=== PATIENT | female | born 1970 | race Caucasian/White ===

== ENCOUNTER 2018-10-11 10:31 | Outpatient (CLI) | payer MEDICARE ==
--- NOTE | 2018-10-11 11:43 | MRI ---
MRI Lower Ext Jt Lt WO Con HISTORY: Left knee pain. No history of previous surgery. COMPARISON: None. FINDINGS: The anterior as well as posterior cruciate ligaments are intact The lateral meniscus has a normal shape and appearance. There is a root tear of the posterior horn of the medial meniscus, there is meniscal protrusion relat ed to loss of hoop strength. There are subchondral marrow edema changes involving the tibia associated with this and what appears to be a small subchondral insufficiency fracture. The medial and lateral collateral ligaments and iliotibial band regions appear unremarkable. Patellar articular cartilage shows some mild thinning involving the lateral facet. The medial and lat eral patellar retinaculum and quadriceps and patellar tendons are unremarkable. A joint effusion is present there is a Pappas's cyst noted which is partially ruptured. There is some low signal intensity density within the Pappas's cyst which could represent some clot. This does not have the appearance of a loose body. IMPRESSION: Moderate tear of the posterior horn of the medial meniscus, this is associated with menis elin protrusion and a small subchondral insufficiency fracture involving the medial tibial plateau.
== END 2018-10-11 10:32 | disposition home or self-care (01) ==
LOC: BICMRI 10:31
PROVIDERS: ATTEND Orthopaedic Surgery
DX: M25.562 Pain in left knee (principal); S83.241A Other tear of medial meniscus, current injury, right knee, initial encounter; M84.461A Pathological fracture, right tibia, initial encounter for fracture

== ENCOUNTER 2019-02-19 12:00 | Outpatient (CLI) | payer MEDICARE ==
--- NOTE | 2019-02-19 15:57 | MMO ---
Bilateral MAMMO Bilat Screen [facility]. CLINICAL HISTORY: Patient is 48 years old and is seen for screening. The patient has the following family history of breast cancer: sister and maternal grandmother. The patient has no personal history of cancer. VIEWS: The views performed were: bilateral craniocaudal with tomosynthesis and bilateral mediolateral oblique with tomosynthesis. This study has been interpreted with the assistance of computer-aided detection. MAMMOGRAM FINDINGS: There are scattered fibroglandular densities. There are no suspicious masses, suspicious calcifications, or new areas of architectural distortion. IMPRESSION: THERE IS NO MAMMOGRAPHIC EVIDENCE OF MALIGNANCY. A ROUTINE FOLLOW-UP MAMMOGRAM IN 1 YEAR IS RECOMMENDED. THE RESULTS OF THIS EXAM WERE SENT TO THE PATIENT. ACR BI-RADS Category 1 - Negative MAMMOGRAPHY NOTE: 1. A negative mammogram report should not delay a biopsy if a dominant of clinically suspicious mass is present. 2. Approximately 10% to 15% of breast cancers are not detected by mammography. 3. Adenosis and dense breasts may obscure an underlying neoplasm. Reported by: SEFERINO MARTE MD Electonically Signed: [id number]
== END 2019-02-19 12:01 | disposition home or self-care (01) ==
LOC: BICMAMMO 12:00
PROVIDERS: ATTEND Family Medicine
DX: Z12.31 Encounter for screening mammogram for malignant neoplasm of breast (principal); Z80.3 Family history of malignant neoplasm of breast
CPT/HCPCS: 77063; 77067

== ENCOUNTER 2022-01-20 12:14 | Outpatient (CLI) | payer OTHER | END 2022-01-20 12:15 | disposition home or self-care (01) | LOC: BICMAMMO 12:14 | PROVIDERS: ATTEND Family Medicine | DX: Z12.31 Encounter for screening mammogram for malignant neoplasm of breast (principal); Z80.3 Family history of malignant neoplasm of breast | CPT/HCPCS: 77063; 77067 ==

== ENCOUNTER 2022-05-10 13:32 | Outpatient (CLI) | payer OTHER ==
[2022-05-10 15:14] LABS: Hemoglobin 13.8 g/dL (12.0-15.5); Mean Corpuscular HGB CONC 33.5 g/dL (32.0-36.0); Mean Corpuscular Hemoglobin 29.9 pg (27.0-33.0); Mean Corpuscular Volume 89.4 fl (81.6-98.3); Mean Platelet Volume 10.4 fl (7.4-10.4); Platelet Count 329 10x3/uL (150-450); RBC Distribution Width 12.6 % (11.5-14.5); Red Blood Cell (RBC) Count 4.61 10x6/uL (3.90-5.03); White Blood Cell (WBC) Count 7.2 10x3/uL (3.5-10.5)
[2022-05-10 15:25] LABS: PTT 26.6 sec (22.0-33.0); Prothrombin Time 10.4 sec (9.5-12.1)
[2022-05-10 15:26] LABS: Anion Gap 13 mmol/L (10-20); BUN (Urea Nitrogen) 15 mg/dL (9.8-20.1); Calc. Creatinine Clearance 0 mL/min (70-130); Calcium 9.8 mg/dL (7.8-10.44); Carbon Dioxide 30 mmol/L (22-29); Chloride 106 mmol/L (98-107); Estimated GFR 92; Glucose 114 mg/dL (70-105); Potassium 4.7 mmol/L (3.5-5.1); Sodium 144 mmol/L (136-145)
== END 2022-05-10 13:33 | disposition home or self-care (01) ==
LOC: LABBT 13:32
PROVIDERS: ATTEND Urology
DX: Z01.818 Encounter for other preprocedural examination (principal); N20.1 Calculus of ureter; R31.29 Other microscopic hematuria
CPT/HCPCS: 80048; 81001; 85027; 85610; 85730; 87086; 93005; 93010

== ENCOUNTER 2022-05-12 08:07 | Day surgery (SDC) | payer OTHER ==
[2022-05-11 09:40] VITALS: BMI 32.9
[2022-05-12] MEDS ORDERED: Iopamidol 30 ML ONE (10:37)
[2022-05-12] MEDS ORDERED: Acetaminophen 500 MG TAB ONE (10:39)
[2022-05-12] MEDS ORDERED: Fentanyl 100 MCG/2 ML VIAL ONE (10:42)
[2022-05-12] MEDS ORDERED: Levofloxacin 500 mg/D5W 100 ml Premix Bag ONE (10:54)
[2022-05-12] MEDS ORDERED: Ondansetron PF 4 MG/2 ML Vial ONE (11:00)
[2022-05-12] MEDS ORDERED: Dexamethasone 20 MG/5 ML VIAL ONE (11:00)
[2022-05-12] MEDS ORDERED: PHENYLEPHRINE-NS 100 MCG/ML 10 ML SYRINGE ONE (11:00)
[2022-05-12] MEDS ORDERED: Lidocaine 1% PF 5 ML VIAL ONE (11:00)
[2022-05-12] MEDS ORDERED: Ketorolac Tromethamine 30 MG/ML VIAL ONE (11:00)
[2022-05-12] MEDS ORDERED: ePHEDrine 50 MG/ML VIAL ONE (11:00)
[2022-05-12] MEDS ORDERED: PROPOFOL 200 MG/20 ML VIAL ONE (11:00)
[2022-05-12] MEDS ORDERED: Phenazopyridine HCl 100 MG TAB ONE (12:06)
[2022-05-12] MEDS ORDERED: Oxybutynin 5 MG TAB ONE (12:06)
== END 2022-05-12 14:05 | disposition home or self-care (01) ==
LOC: SDC 08:07
PROVIDERS: ATTEND Urology
PROC: 0T768DZ Dilation of Right Ureter with Intraluminal Device, Via Natural or Artificial Opening Endoscopic (ICD-10-PCS; principal; 2022-05-12)
DX: N13.2 Hydronephrosis with renal and ureteral calculous obstruction (principal); N13.4 Hydroureter; N35.92 Unspecified urethral stricture, female; G47.33 Obstructive sleep apnea (adult) (pediatric); Z87.820 Personal history of traumatic brain injury; Z79.1 Long term (current) use of non-steroidal anti-inflammatories (NSAID); Z79.899 Other long term (current) drug therapy; Z88.0 Allergy status to penicillin; Z88.8 Allergy status to other drugs, medicaments and biological substances
CPT/HCPCS: 74018; 74420; C1769; C2617; J1100; J1885; J1956; J2405; J2704; J3010; J3490; Q9967

== ENCOUNTER 2022-05-25 13:16 | Observation (INO) | payer OTHER ==
[2022-05-25] MEDS ORDERED: Ketorolac Tromethamine 30 MG/ML VIAL ONE ×2 (13:57→14:07)
[2022-05-25] MEDS ORDERED: Ondansetron PF 4 MG/2 ML Vial ONE ×2 (13:57→14:07)
[2022-05-25 14:12] LABS: #Eosinphils 0.2 thou/uL (0.0-0.7); #Lymphocytes 1.3 thou/uL (1.20-3.40); #Neutrophils 7.8 thou/uL (1.40-6.50); %Basophils 0.4 % (0.0-1.0); %Lymphocytes 12.7 % (21.0-51.0); %Monocytes 9.8 % (0.0-10.0); %Neutrophils 75.1 % (42.0-75.0); Hemoglobin 12.9 g/dL (12.0-16.0); Mean Corpuscular HGB CONC 34.1 g/dL (32.0-36.0); Mean Corpuscular Volume 90.9 fl (78.0-98.0); Mean Platelet Volume 8.1 fL (7.4-10.4); Platelet Count 266 10x3/uL (130-400); RBC Distribution Width 11.8 % (11.5-14.5); Red Blood Cell (RBC) Count 4.17 mill/uL (4.20-5.40); White Blood Cell (WBC) Count 10.3 10x3/uL (4.8-10.8)
[2022-05-25 14:31] LABS: ALT (SGPT) 31 U/L (8-55); AST (SGOT) 26 U/L (5-34); Albumin 4.1 g/dL (3.5-5.0); Alkaline Phosphatase 75 U/L (40-110); Anion Gap 11 mmol/L (10-20); BUN (Urea Nitrogen) 16 mg/dL (9.8-20.1); Bilirubin, Total 0.6 mg/dL (0.2-1.2); Calc. Creatinine Clearance 0 mL/min (70-130); Calcium 9.3 mg/dL (7.8-10.44); Carbon Dioxide 27 mmol/L (22-29); Chloride 104 mmol/L (98-107); Estimated GFR 83; Globulin 2.8 g/dL (2.4-3.5); Glucose 109 mg/dL (70-105); Lipase 53 U/L (8-78); Potassium 3.9 mmol/L (3.5-5.1); Protein, Total 6.9 g/dL (6.0-8.3); Sodium 138 mmol/L (136-145)
[2022-05-25] MEDS ORDERED: Ondansetron PF 4 MG/2 ML Vial IVP PRN (15:19)
[2022-05-25] MEDS ORDERED: Acetaminophen 325 MG TAB PO PRN (15:19)
[2022-05-25] MEDS ORDERED: traMADol HCl 50 MG TAB PO PRN (15:21)
[2022-05-25] MEDS ORDERED: cefTRIAXone\\ROCEPHIN 1 GM VIAL ONE (15:38)
[2022-05-25] MEDS ORDERED: Promethazine HCl 25 MG in Sodium Chloride 0.9% 50 ML IVPB SCH (15:45)
[2022-05-25] MEDS ORDERED: cefTRIAXone\\ROCEPHIN 1 GM in Sodium Chloride 0.9% 100 ML IVPB SCH (16:00)
[2022-05-25] MEDS ORDERED: Morphine 4 MG/ML VIAL SLOW IVP PRN (16:28)
[2022-05-25] MEDS ORDERED: Sodium Chloride 0.9% 1,000 ML IV SCH (16:30)
[2022-05-25] MEDS ORDERED: Morphine 4 MG/ML VIAL ONE (16:34)
[2022-05-25] MEDS ORDERED: Mag-Al 1200 mg/1200 mg/30 ML UDCUP PO PRN (17:47)
[2022-05-25] MEDS ORDERED: hydrALAZINE 20 MG/ML VIAL SLOW IVP PRN (17:47)
[2022-05-25] MEDS ORDERED: diphenhydrAMINE 50 MG/ML VIAL IVP PRN (17:47)
[2022-05-25] MEDS ORDERED: Phenazopyridine HCl 95 MG TAB PO PRN ×2 (17:47→23:00)
[2022-05-25] MEDS ORDERED: HYDROcodone/Acetaminophen 10/325 mg Tablet PO PRN ×2 (17:47)
[2022-05-25] MEDS ORDERED: Acetaminophen 500 MG TAB PO PRN (17:47)
[2022-05-25] MEDS ORDERED: SUMAtriptan Succinate 50 MG TAB PO PRN (17:55)
[2022-05-25] MEDS ORDERED: Famotidine/PF 20 mg/2ml Vial ONE (20:58)
[2022-05-25] MEDS ORDERED: Tamsulosin HCl 0.4 MG CAP PO SCH (21:00)
[2022-05-25] MEDS ORDERED: Atorvastatin Calcium 40 MG TAB PO SCH (21:00)
[2022-05-25] MEDS ORDERED: Docusate 100 MG CAP PO SCH (21:00)
[2022-05-25] MEDS ORDERED: Gabapentin 300 MG CAP PO SCH (21:00)
[2022-05-25] MEDS ORDERED: Famotidine/PF 20 mg/2ml Vial SLOW IVP SCH (21:00)
[2022-05-25 22:35] LABS: SARS-CoV-2 NAA Rapid Test Not Detected (NotDetected)
[2022-05-25] MEDS ORDERED: Phenazopyridine HCl 100 MG TAB PO PRN (23:00)
[2022-05-26 00:15] LABS: Bilirubin Negative (Negative); Blood, Urine 3+ (Negative); Clarity Turbid (Clear); Glucose, Urine (Dipstick) Normal (Negative); Ketone, Urine Negative (Negative); Leukocyte 250 Leu/uL (Negative); Nitrite Negative (Negative); Protein, Urine (Dipstick) 100 mg/dL (Neg-Trace); Urobilinogen Normal mg/dL (Less than 2)
[2022-05-26 00:16] LABS: Squamous Epithelial 0-3 HPF (0-3)
[2022-05-26 00:17] LABS: Bacteria/HPF Rare-Few HPF (None Seen); RBC/HPF Greater than 50 HPF (0-3)
[2022-05-26 04:55] LABS: #Basophils 0.1 thou/uL (0.0-0.2); #Eosinphils 0.3 thou/uL (0.0-0.7); #Lymphocytes 2.3 thou/uL (1.20-3.40); #Monocytes 0.8 thou/uL (0.11-0.59); #Neutrophils 3.8 thou/uL (1.40-6.50); %Eosinophils 3.9 % (0.0-10.0); %Lymphocytes 31.5 % (21.0-51.0); %Neutrophils 52.6 % (42.0-75.0); Anion Gap 12 mmol/L (10-20); BUN (Urea Nitrogen) 15 mg/dL (9.8-20.1); Calc. Creatinine Clearance 0 mL/min (70-130); Calcium 9.3 mg/dL (7.8-10.44); Carbon Dioxide 27 mmol/L (22-29); Chloride 107 mmol/L (98-107); Estimated GFR 65; Glucose 97 mg/dL (70-105); Hemoglobin 11.7 g/dL (12.0-16.0); Mean Corpuscular HGB CONC 33.4 g/dL (32.0-36.0); Mean Corpuscular Volume 92.8 fl (78.0-98.0); Mean Platelet Volume 7.8 fL (7.4-10.4); Platelet Count 249 10x3/uL (130-400); Potassium 4.7 mmol/L (3.5-5.1); RBC Distribution Width 11.8 % (11.5-14.5); Red Blood Cell (RBC) Count 3.78 mill/uL (4.20-5.40); Sodium 141 mmol/L (136-145); White Blood Cell (WBC) Count 7.2 10x3/uL (4.8-10.8)
[2022-05-26] MEDS ORDERED: Levothyroxine Sodium 50 MCG TAB PO SCH (06:00)
[2022-05-26 07:42] VITALS: BP 93/75
[2022-05-26] MEDS ORDERED: Sertraline 100 MG TAB PO SCH (09:00)
[2022-05-26] MEDS ORDERED: Dexamethasone 20 MG/5 ML VIAL ONE (10:15)
[2022-05-26] MEDS ORDERED: Ketorolac Tromethamine 30 MG/ML VIAL ONE (10:15)
[2022-05-26] MEDS ORDERED: Ondansetron PF 4 MG/2 ML Vial ONE (10:15)
[2022-05-26] MEDS ORDERED: PROPOFOL 200 MG/20 ML VIAL ONE (10:15)
[2022-05-26] MEDS ORDERED: PHENYLEPHRINE-NS 100 MCG/ML 10 ML SYRINGE ONE (10:15)
[2022-05-26] MEDS ORDERED: Lidocaine 1% PF 5 ML VIAL ONE (10:15)
[2022-05-26] MEDS ORDERED: Iopamidol 15 ML ONE (10:24)
[2022-05-26] MEDS ORDERED: Midazolam HCl 2 mg/2 ml Vial ONE (10:48)
[2022-05-26] MEDS ORDERED: fentaNYL PF 100 MCG/2 ML SYRINGE ONE (10:48)
[2022-05-26] MEDS ORDERED: cefTRIAXone\\ROCEPHIN 1 GM VIAL ONE (10:50)
[2022-05-26] MEDS ORDERED: Sodium Chloride 0.9% 100 ML ONE (10:50)
[2022-05-26] MEDS ORDERED: Oxybutynin 5 MG TAB ONE (11:42)
[2022-05-26] MEDS ORDERED: Phenazopyridine HCl 100 MG TAB ONE (11:42)
== END 2022-05-26 15:46 | disposition home or self-care (01) ==
LOC: ERS 13:16 → ERHOLD 15:55 → SURG A 15:55
PROVIDERS: ADMIT Internal Medicine; ATTEND Internal Medicine
PROC: 0TP98DZ Removal of Intraluminal Device from Ureter, Via Natural or Artificial Opening Endoscopic (ICD-10-PCS; principal; 2022-05-26)
PROC: 0T768DZ Dilation of Right Ureter with Intraluminal Device, Via Natural or Artificial Opening Endoscopic (ICD-10-PCS; 2022-05-26)
DX: N13.30 Unspecified hydronephrosis (principal); N13.8 Other obstructive and reflux uropathy; E78.5 Hyperlipidemia, unspecified; E03.9 Hypothyroidism, unspecified; G47.33 Obstructive sleep apnea (adult) (pediatric); G43.909 Migraine, unspecified, not intractable, without status migrainosus; Z87.820 Personal history of traumatic brain injury; Z79.899 Other long term (current) drug therapy; Z88.0 Allergy status to penicillin; Z88.8 Allergy status to other drugs, medicaments and biological substances; Z98.890 Other specified postprocedural states; Z20.822 Contact with and (suspected) exposure to COVID-19
CPT/HCPCS: 0240U; 52332; 71045; 74176; 74420; 76770; 76856; 80048; 80053; 83690; 85025 ×2; 87086; 96365; 96367; 96375; 99285; G0378 ×2; 36415; 81003; 81015; J0696; J1100; J1885; J2250; J2270; J2405; J2550; J2704; J3490; J7050; Q9967; S0028

== ENCOUNTER 2022-06-09 10:24 | Outpatient (CLI) | payer OTHER | END 2022-06-09 10:25 | disposition home or self-care (01) | LOC: BICCT 10:24 | PROVIDERS: ATTEND Urology | DX: N20.1 Calculus of ureter (principal); N13.30 Unspecified hydronephrosis; Z96.0 Presence of urogenital implants | CPT/HCPCS: 74176 ==

== ENCOUNTER 2022-08-30 11:52 | Outpatient (CLI) | payer MEDICARE | END 2022-08-30 11:53 | disposition home or self-care (01) | LOC: ULT 11:52 | PROVIDERS: ATTEND Urology | DX: N20.1 Calculus of ureter (principal); Z98.890 Other specified postprocedural states; N28.89 Other specified disorders of kidney and ureter | CPT/HCPCS: 36415; 76770; 80048; 81001; 87086 ==

== ENCOUNTER 2023-02-08 11:23 | Outpatient (CLI) | payer MEDICARE | END 2023-02-08 11:24 | disposition home or self-care (01) | LOC: BICMAMMO 11:23 | PROVIDERS: ATTEND Family Medicine | DX: Z12.31 Encounter for screening mammogram for malignant neoplasm of breast (principal); Z80.3 Family history of malignant neoplasm of breast | CPT/HCPCS: 77063; 77067 ==

== ENCOUNTER 2023-05-17 15:55 | Emergency (ER) | payer MEDICARE ==
[2023-05-17] MEDS ORDERED: Vancomycin 1 GM/200 ML (FROZEN) BAG ONE (17:18)
[2023-05-17] MEDS ORDERED: Diazepam 10 MG/2 ML SYRINGE ONE (17:18)
[2023-05-17 17:30] LABS: #Basophils 0.1 thou/uL (0.0-0.2); #Eosinphils 0.2 thou/uL (0.0-0.7); #Monocytes 1.2 thou/uL (0.11-0.59); #Neutrophils 7.3 thou/uL (1.40-6.50); %Basophils 0.6 % (0.0-1.0); %Eosinophils 1.6 % (0.0-10.0); %Lymphocytes 17.7 % (21.0-51.0); %Monocytes 11.5 % (0.0-10.0); %Neutrophils 68.2 % (42.0-75.0); Hematocrit 37.8 % (36.0-47.0); Hemoglobin 12.7 g/dL (12.0-16.0); Mean Corpuscular HGB CONC 33.6 g/dL (32.0-36.0); Mean Corpuscular Hemoglobin 30.2 pg (27.0-31.0); Mean Corpuscular Volume 89.8 fl (78.0-98.0); Mean Platelet Volume 9.6 fL (7.4-10.4); Platelet Count 294 10x3/uL (130-400); RBC Distribution Width 12.8 % (11.5-14.5); Red Blood Cell (RBC) Count 4.21 mill/uL (4.20-5.40); White Blood Cell (WBC) Count 10.8 10x3/uL (4.8-10.8)
[2023-05-17] MEDS ORDERED: Ketorolac Tromethamine 30 MG (1 mL) VIAL ONE (17:34)
[2023-05-17 17:54] LABS: ALT (SGPT) 20 U/L (8-55); AST (SGOT) 21 U/L (5-34); Alkaline Phosphatase 98 U/L (40-110); Anion Gap 11 mmol/L (10-20); BUN (Urea Nitrogen) 14 mg/dL (9.8-20.1); Bilirubin, Total 0.4 mg/dL (0.2-1.2); Calc. Creatinine Clearance 0 mL/min (70-130); Calcium 9.6 mg/dL (7.8-10.44); Carbon Dioxide 25 mmol/L (22-29); Chloride 105 mmol/L (98-107); Estimated GFR 84; Globulin 3.1 g/dL (2.4-3.5); Glucose 150 mg/dL (70-105); Protein, Total 7.1 g/dL (6.0-8.3); Sodium 137 mmol/L (136-145)
== END 2023-05-17 18:35 | disposition home or self-care (01) ==
LOC: ERS 15:55
DX: L01.00 Impetigo, unspecified (principal); L03.90 Cellulitis, unspecified; B00.1 Herpesviral vesicular dermatitis; I10 Essential (primary) hypertension
CPT/HCPCS: 80053; 85025; J3370; 96365; 96375; J1885; J3360

== ENCOUNTER 2024-02-13 10:27 | Outpatient (CLI) | payer MEDICARE | END 2024-02-13 10:28 | disposition home or self-care (01) | LOC: BICMAMMO 10:27 | PROVIDERS: ATTEND Nurse Practitioner Family | DX: Z12.31 Encounter for screening mammogram for malignant neoplasm of breast (principal); Z80.3 Family history of malignant neoplasm of breast | CPT/HCPCS: 77063; 77067 ==

== ENCOUNTER 2024-02-21 11:18 | Outpatient (CLI) | payer MEDICARE ==
[2024-02-21 13:06] LABS: #Basophils 0.05 10x3/uL (0.0-0.2); %Eosinophils 3.3 % (0.0-10.0); %Lymphocytes 31.2 % (21.0-51.0); %Monocytes 12.4 % (0.0-10.0); %Neutrophils 52.1 % (42.0-75.0); Hematocrit 39.2 % (36.0-47.0); Hemoglobin 12.8 g/dL (12.0-16.0); Mean Corpuscular HGB CONC 32.7 g/dL (32.0-36.0); Mean Corpuscular Volume 88.7 fL (78.0-98.0); Mean Platelet Volume 10.1 fL (7.4-10.4); Platelet Count 260 10x3/uL (130-400); RBC Distribution Width 12.5 % (11.5-14.5); Red Blood Cell (RBC) Count 4.42 mill/uL (4.20-5.40)
[2024-02-21 13:19] LABS: Anion Gap 9 mmol/L (10-20); BUN (Urea Nitrogen) 17 mg/dL (9.8-20.1); Calc. Creatinine Clearance 0 mL/min (70-130); Calcium 9.3 mg/dL (7.8-10.44); Carbon Dioxide 27 mmol/L (22-29); Chloride 106 mmol/L (98-107); Estimated GFR 97; Glucose 103 mg/dL (70-105); Potassium 4.4 mmol/L (3.5-5.1); Sodium 138 mmol/L (136-145)
== END 2024-02-21 11:19 | disposition home or self-care (01) ==
LOC: LABBT 11:18
PROVIDERS: ATTEND Orthopaedic Surgery
DX: Z01.818 Encounter for other preprocedural examination (principal); M65.342 Trigger finger, left ring finger
CPT/HCPCS: 80048; 85025; 93005; 93010